=== PATIENT | female | born 1955 | race Caucasian/White ===

== ENCOUNTER 2018-09-21 11:00 | Emergency (ER) | payer MEDICARE ==
[~2018-09-21] VITALS: Ht 157.5 cm; Wt 106.6 kg
[2018-09-21 11:56] LABS: BASOPHILS % (AUTO) 1.2 % (0.0-5.0); EOSINOPHILS % (AUTO) 7.4 % (0.0-8.0); HEMATOCRIT 39.3 % (36-48); LYMPHOCYTES % (AUTO) 38.7 % (21.0-51.0); MEAN CORPUSCULAR HEMOGLOBIN 32.8 pg (27.0-33.0); MEAN CORPUSCULAR HGB CONC 33.1 g/dL (32.0-36.0); MEAN CORPUSCULAR VOLUME 98.9 fL (79-99); MONOCYTES % (AUTO) 12.5 % (3.0-13.0); NEUTROPHILS % (AUTO) 40.2 % (40.0-77.0); PLATELET COUNT (AUTO) 128 K/uL (130-400); RED BLOOD CELL COUNT(AUTO) 3.97 MIL/uL (4.00-5.50); RED CELL DISTRIBUTION WIDTH 17.8 % (11.0-15.5); WHITE BLOOD COUNT (AUTO) 3.7 K/uL (4.8-10.8)
[2018-09-21] MEDS ORDERED: CLINDAMYCIN HCL 150 MG CAP ONE (12:01)
[2018-09-21 12:05] LABS: CREATININE 0.7 mg/dL (0.5-1.5); POTASSIUM 3.8 mmol/L (3.5-5.1)
[2018-09-21 12:13] LABS: ALBUMIN 3.8 g/dL (3.5-5.0); BILIRUBIN,TOTAL 0.5 mg/dL (0.2-1.0); TOTAL PROTEIN, SERUM 7.7 g/dL (6.0-8.3)
[2018-09-21] MEDS ORDERED: DIPHENHYDRAMINE HCL 2% 30 GM CREAM.GM. TP SCH (12:45)
== END 2018-09-21 14:35 | disposition home or self-care (01) ==
LOC: EDH 11:00
DX: L03.114 Cellulitis of left upper limb (principal); I10 Essential (primary) hypertension; E07.9 Disorder of thyroid, unspecified; Z90.89 Acquired absence of other organs; Z90.721 Acquired absence of ovaries, unilateral; M79.602 Pain in left arm
CPT/HCPCS: 36415; 80053; 85025; 85651; 86140; 93971